=== PATIENT | female | born 1955 | race Caucasian/White ===

== ENCOUNTER → 2020-05-13 11:32 | Outpatient (CLI) | payer BC, OTHER, SELFPAY ==
--- NOTE | 2020-05-13 11:33 | DI.RAD.S_ITS ---
PROCEDURE: XR LUMBAR SPINE MIN 4V INDICATIONS: Lumbar radiculopathy TECHNIQUE: 5 views including both obliques. COMPARISON: None. FINDINGS: Bones: 5 nonrib-bearing vertebrae are present. There is normal bony alignment. No vertebral body compression fractures. No suspicious bony lesions. There is mild degenerative disc disease along the thoracolumbar junction and lumbosacral spine and moderate such degeneration at L5-S1. Facet osteoarthritis is mild at L4-5 and moderately severe at L5-S1 to the degree that spinal and foraminal stenosis may be present as a result. Soft tissues: Overlying bowel gas pattern is normal. No suspicious soft tissue calcifications. Oblique images: No pars defects. IMPRESSION: No compression fracture found. Mild degenerative changes over the upper and middle thirds of the LS spine and at L5-S1 there is both degenerative disc height reduction and facet osteoarthritis to the degree that L5-S1 spinal and foraminal stenosis would be suspected. Dictated by: Tung Shoemaker M.D. on 05/13/2020 at 12:37 Approved by: Tung Shoemaker M.D. on 05/13/2020 at 12:38
== END ==
PROVIDERS: Family Provider Family Medicine; Referring Provider Physical Medicine & Rehabilitation; Visit Provider Physical Medicine & Rehabilitation
DX: M47.26 Other spondylosis with radiculopathy, lumbar region (principal); M47.27 Other spondylosis with radiculopathy, lumbosacral region
CPT/HCPCS: 72110

== ENCOUNTER → 2020-05-22 15:30 | Outpatient (CLI) | payer BC, OTHER, SELFPAY ==
--- NOTE | 2020-05-22 15:32 | DI.MRI.S_ITS ---
PROCEDURE: MR LUMBAR SPINE WO CON INDICATIONS: Right L5 radiculopathy TECHNIQUE: Noncontrast sagittal T1 spin echo and T2 fast echo, sagittal STIR, axial T1 and T2 fast spin echo through the lumbar spine. In cases with scoliosis, additional coronal T2 fast spin echo may be performed. COMPARISON: [facility], RG, XR L-SPINE 2-3V, 04/23/2020, 14:30. [facility], CR, XR LUMBAR SPINE MIN 4V, 05/13/2020, 11:33. FINDINGS: Image quality: Excellent. Alignment and Curvature: There is normal bony alignment. Bone Marrow: Mild reactive endplate changes noted adjacent to the L5-S1 disc. Benign intraosseous hemangioma noted in the L1 vertebral body. No acute vertebral body compression fractures. Spinal Cord: Conus medullaris terminates at the L1 level. Visualized cord demonstrates normal signal and size. Paraspinous Soft Tissues: No paravertebral masses. T12-L1: Normal appearance. L1-L2: Loss of disc signal. Mild, diffuse disc bulge. Mild narrowing of the central canal. Mild bilateral neural foraminal narrowing. No neural compression. L2-L3: Loss of disc signal. No central stenosis. Mild bilateral neural foraminal narrowing. No neural compression. L3-L4: Loss of disc signal. Mild, diffuse disc bulge. Mild bilateral facet hypertrophy. Mild narrowing of the central canal. Mild bilateral neural foraminal narrowing. No neural compression. L4-L5: Loss of disc signal and slight loss of disc height. Mild, diffuse disc bulge. Mild bilateral facet hypertrophy. Mild narrowing of the central canal. Mild bilateral neural foraminal narrowing. No neural compression. Fissure noted in the posterior annulus. L5-S1: Loss of disc signal and height. Mild, diffuse disc bulge. Mild bilateral facet hypertrophy. No central stenosis. No neural foraminal narrowing. No neural compression. Fissures noted in the posterior annulus. Small right S2-S3 Tarlov cysts incidentally noted. IMPRESSION: 1. Multilevel degenerative disc disease. 2. Multilevel facet arthropathy. 3. No severe central canal narrowing. 4. No severe neural foraminal narrowing. New. Five. No neural compression. 6. L4-L5 and L5-S1 disc annulus fissures. Dictated by: Munira Kapadia MD, PhD on 05/22/2020 at 16:09 Approved by: Munira Kapadia MD, PhD on 05/22/2020 at 16:18
== END ==
PROVIDERS: Family Provider Family Medicine; Referring Provider Physical Medicine & Rehabilitation; Visit Provider Physical Medicine & Rehabilitation
DX: M54.17 Radiculopathy, lumbosacral region (principal); M51.36 Other intervertebral disc degeneration, lumbar region; M47.816 Spondylosis without myelopathy or radiculopathy, lumbar region
CPT/HCPCS: 72148

== ENCOUNTER → 2020-08-04 14:23 | Outpatient (CLI) | payer BC, OTHER, SELFPAY ==
[2020-08-04 15:00] LABS: COVID19 -Nasal RAPID Negative (Negative)
== END ==
PROVIDERS: Family Provider Family Medicine; PCP Family Medicine; Visit Provider Physical Medicine & Rehabilitation
DX: Z20.822 Contact with and (suspected) exposure to COVID-19 (principal)
CPT/HCPCS: 87635; C9803

== ENCOUNTER 2020-08-06 15:05 | Outpatient (CLI) | payer BC, OTHER, SELFPAY ==
[2020-08-06] VITALS (7 sets, daily range): BP systolic 105–138; BP diastolic 59–76; PULSE 61–71; RESP 12–20; TEMP 36; O2SAT 95–100
--- NOTE | 2020-08-06 15:09 | DI.RAD.S_ITS ---
PROCEDURE: PAIN L/S TRANSFORAMINAL INJECT INDICATIONS: SPONDYLOSIS COMPARISON: None. FINDINGS: Fluoroscopic spot filming was performed to verify placement of spinal needles at the L4-5 level(s), as labeled on the films. Appropriate location(s) of the needle tip(s) was confirmed by injection of iodinated contrast. IMPRESSION: Fluoroscopy for L4-5 transforaminal injection. Dictated by: Justine Latif M.D. on 08/06/2020 at 16:27 Approved by: Justine Latif M.D. on 08/06/2020 at 16:28
[2020-08-06] MEDS: MIDAZOLAM 5 MG/5 ML VIAL IV (15:35)
[2020-08-06] MEDS: fentaNYL 100 MCG/2 ML INJ 50 MCG IV (15:35)
[2020-08-06] MEDS: IOPAMIDOL 15 ML VIAL 3 ML INJ (15:41)
[2020-08-06] MEDS: BETAMETHASONE 30 MG/5 ML MDV 6 MG INJ (15:41)
[2020-08-06] MEDS: BUPIVACAINE 0.25% (PF) VIAL 2 ML INJ (15:41)
[2020-08-06] MEDS: DEXAMETHASONE 10 MG/ML VIAL 20 MG INJ (15:42)
--- NOTE | 2020-08-06 15:48 | P.PCN_ITS ---
Date/Time/Diagnoses Date of procedure: 08/06/20 Time of procedure: 15:48 Pre-procedure diagnosis: 1. FORAMINAL STENOSIS WITH LE SYMPTOMS Post-procedure diagnosis: same Procedure Notes Procedure: 1. FLUOROSCOPICALLY GUIDED CONTRAST CONTROLLED TRANSFORAMINAL EPIDURAL STEROID INJECTION - RIGHT L4/5 TFESI Indications: Alysia is referred by Dr. Reeder for treatment of Foraminal Stenosis with Right LE Symptoms Physician: Claude Burns Total Fluoroscopy time (seconds): 8 Total sedation minutes: 11 Complications: none Procedure in detail & Post-procedure care: FINDINGS Foraminal Nerve Root Compression secondary to disc disease and facet hypertrophy DESCRIPTION OF PROCEDURE Following review of allergy and review of potential side effects and complications, including, but not necessarily limited to, infection, allergic reaction, local tissue breakdown, stroke, temporary or permanent nerve injury, paralysis, and possible , the patient indicated that the patient understood and agreed to proceed. An informed consent document was signed by the patient, witnessed by a nurse, and placed in the patient's chart. Additionally, other treatment options including medications, modalities, and physical therapy were reviewed with the patient. After review of previous anaesthesic history and IV conscious sedation the patient was deemed safe to proceed with today?s procedure with IV conscious sedation as ASA class II designation. Safety time-out was performed to confirm patient ID, procedure to be performed and site of procedure. IV sedation was accomplished with a combination of 2mg of Versed and 50mcg of Fentanyl was administered by the RN after DO order, titrated to patient comfort during the course of the procedure while the patient remained responsive to all verbal commands In the prone position following sterile prep and drape of the lumbar region, the right L4/5 posterior neuroforamen was identified fluoroscopically. The skin was anesthetized via a 25-gauge 1.5-inch needle with 1% lidocaine solution. At this point, a 25-gauge 3.5-inch spinal needle was atraumatically introduced and advanced under fluoroscopic guidance through the posterior right L4/5 neuroforamen to approximately the anterior aspect of the canal. Depth was confirmed on lateral view. Following negative aspiration, injection of approximately 1.5cc of Isovue 200 under live fluoroscopy in the AP view confirmed excellent flow along the nerve root, into the epidural space without vascular or intrathecal uptake observed Radiological data, including multiple fluoroscopic views of the lumbosacral spine, reveal a spinal needle at the right L4/5 posterior neuroforamen. Subsequent views show flow of contrast material flowing superiorly and inferiorly along the nerve root confirming epidural flow. Subsequently, a test dose of 1.5 cc of 1% lidocaine solution was administered and patient was observed for two minutes for signs or symptoms of complications, including abdominal pain, shortness of breath, bilateral upper or lower extremity weakness, nausea and vomiting, prior to steroid injection. At this point, a total of 3cc or 20mg of dexamethasone and 6mg of betamethasone was injected without incident. The procedure tolerated the procedure well without signs or symptoms of complications prior to transfer to the recovery area continued monitoring without incident. The patient was then transferred to the recovery area where they were observed for an appropriate time after the injection. The patient reported a VAS score of 7 prior to the procedure and a post- procedure VAS of 0. POST OP INSTRUCTIONS The patient was provided a Pain Log to continue to record their response to the target-specific procedure prior to follow-up visit with their referring physician. Additionally, specific post-injection care instructions and a contact number to our office were provided if concerns arise regarding possible complications associated with the procedure are suspected.
== END 2020-08-06 16:15 | disposition home or self-care (01) ==
LOC: RAD 15:07
PROVIDERS: Family Provider Family Medicine; PCP Family Medicine; Referring Provider Physical Medicine & Rehabilitation; Visit Provider Physical Medicine & Rehabilitation
DX: M48.061 Spinal stenosis, lumbar region without neurogenic claudication (principal); M51.16 Intervertebral disc disorders with radiculopathy, lumbar region
CPT/HCPCS: 64483; 99152; J0702; J1100; J2250; J3010

== ENCOUNTER → 2022-04-06 15:08 | Outpatient (CLI) | payer BC, SELFPAY ==
--- NOTE | 2022-04-06 | DI.US.S_ITS ---
PROCEDURE: US ARTERIAL DUPLEX LE BI INDICATIONS: RIGHT THIGH PAIN TECHNIQUE: Color and pulse Doppler interrogation was performed of both lower extremity arterial systems, with image documentation. COMPARISON: None. FINDINGS: Right lower extremity: Common femoral artery: 58 cm/sec, with monophasic flow. Deep femoral artery: 25 cm/sec, with monophasic flow. Proximal superficial femoral artery: 39 cm/sec, with monophasic flow. Mid superficial femoral artery: 39 cm/sec, with monophasic flow. Distal superficial femoral artery: 23 cm/sec, with monophasic flow. Popliteal artery: 23 cm/sec, with monophasic flow. Posterior tibial artery: 20 cm/sec, with monophasic flow. Anterior tibial artery/dorsalis pedis: 8 cm/sec, with monophasic flow. Winter-scale imaging description: Monophasic waveforms suggest hemodynamically significant inflow stenosis of the iliac. No hemodynamically significant stenosis noted from the common femoral to the popliteal. At least 2 vessel runoff. Left lower extremity: Common femoral artery: 132 cm/sec, with triphasic flow. Deep femoral artery: 65 cm/sec, with biphasic flow. Proximal superficial femoral artery: 92 cm/sec, with biphasic flow. Mid superficial femoral artery: 81 cm/sec, with biphasic flow. Distal superficial femoral artery: 54 cm/sec, with biphasic flow. Popliteal artery: 55 cm/sec, with biphasic flow. Posterior tibial artery: 52 cm/sec, with biphasic flow. Anterior tibial artery/dorsalis pedis: 67 cm/sec, with biphasic flow. Winter-scale imaging description: There is moderate stenosis of the left common femoral. All waveforms are unremarkable. No other stenotic disease from the common femoral to the popliteal. At least 2 vessel runoff. IMPRESSION: 1. Findings are highly suggestive of an inflow right iliac stenosis, which can correlate with the patient's right thigh pain symptomatology. 2. No identification of a stenotic lesion from the common femoral to the popliteal of the right lower extremity. At least 2 vessel runoff. 3. No significant stenotic disease identified in the left lower extremity arterial tree. Waveforms are normal. Dictated by: Mateo Rdz M.D. on 04/06/2022 at 17:28 Approved by: Mateo Rdz M.D. on 04/06/2022 at 17:32
== END ==
PROVIDERS: Family Provider Family Medicine; PCP Family Medicine; Referring Provider Internal Medicine Cardiovascular Disease; Visit Provider Internal Medicine Cardiovascular Disease
DX: I73.9 Peripheral vascular disease, unspecified (principal)
CPT/HCPCS: 93925